=== PATIENT | female | born 1995 | race Caucasian/White ===

== ENCOUNTER 2016-05-07 03:30 | Emergency (ER) | payer OTHER ==
[2016-05-07] MEDS ORDERED: IOPAMIDOL 300 (61%) 100 ML VIAL IV ONE (03:31)
[2016-05-07 03:51] LABS: URINE APPEARANCE SL CLOUDY; URINE BILIRUBIN NEGATIVE (NEGATIVE); URINE BLOOD 1+ (NEGATIVE); URINE COLOR YELLOW; URINE GLUCOSE (UA) NEGATIVE (NEGATIVE); URINE LEUKOCYTE ESTERASE TRACE (NEGATIVE); URINE NITRITE NEGATIVE (NEGATIVE); URINE PROTEIN NEGATIVE (NEGATIVE); URINE UROBILINOGEN NORMAL (0-1 mg/dl)
[2016-05-07 03:53] LABS: HCG,QUALITATIVE URINE NEGATIVE
[2016-05-07 03:57] LABS: URINE BACTERIA TRACE; URINE MUCUS 3+
[2016-05-07 04:20] LABS: ABSOLUTE NEUTROPHIL COUNT 2.7 K/mm3 (1.8-7.7); BASO # 0.1 K/mm3 (0.0-0.2); EOS # 0.1 (0.0-0.5); EOS % 2.1 % (0.9-2.9); HEMOGLOBIN 13.5 gm/l (12.0-16.0); IMM NEUT% 0.2 % (0-1); LYMPH # 2.5 (1.0-4.8); LYMPH % 44.3 % (15-45); MEAN CELL VOLUME 88.3 fl (81.0-99.0); MEAN CORPUSCULAR HEMOGLOBIN 29.8 pg (27.0-31.0); MEAN CORPUSCULAR HGB CONC 33.8 g/dl (33.0-37.0); MEAN PLATELET VOLUME 10.1 fl (7.4-10.4); MONO # 0.3 (0.0-0.8); MONO % 5.9 % (4-12); NEUT % 46.5 % (43-75); PLATELET COUNT 221 K/mm3 (130-400); RED CELL DISTRIBUTION WIDTH 11.1 % (11.5-14.5)
[2016-05-07 05:00] LABS: CALCIUM 9.5 mg/dL (8.6-10.3)
[2016-05-07 05:51] LABS: ALB/GLOB RATIO 1.6 (>1.0); ALBUMIN 4.5 gm/dL (3.5-5.7)
--- NOTE | 2016-05-07 09:23 | CT ---
ABD/PELVIS W/ CON COMPARISON: Pelvis ultrasound, 12/25/2015. CT abdomen and pelvis without contrast 10/19/2013 HISTORY: Abdominal bloating since 04/06/2016. Diarrhea and nausea. No vomiting. Headaches every day. Technique: Intravenous injection 100 mL Isovue 300. Using a [employer] Aquilion [address] scanner, images were obtained from the diaphragm to the floor the pelvis. An automated dose reduction technique was used to minimize patient radiation dose. Dose information: CTDIvol (mGy): 4.20 DLP(mGycm): 191.40 FINDINGS: Lung bases: Normal. Inferior mediastinum and heart: Normal. Liver: Normal. Gallbladder:Normal. Bile ducts: Normal. Pancreas: Normal. Spleen: Normal. Adrenal glands: Normal. Kidneys: No change. Bilateral nonobstructing calculi up to 3 mm on the right and up to 4 mm on the left. Ureters: Normal Urinary bladder: Normal. Uterus and adnexa: Normal. Blood vessels: Normal Lymph nodes: Normal Stomach: Normal Duodenum: Normal Small intestine: Normal Appendix: Normal Colon: Normal Abdominal wall and supporting musculature: Normal Bones: Normal IMPRESSION: Incidental finding of unchanged bilateral nonobstructing renal calculi up to 3 mm on the right and up to 4 mm on the left. Preliminary report by [facility] radiologist Johnny Byrnes M.D. 05/07/2016 at 08/12/2002
== END 2016-05-07 05:40 | disposition home or self-care (01) ==
LOC: ED 03:30
DX: R10.9 Unspecified abdominal pain (principal); R11.0 Nausea
CPT/HCPCS: 81025; 85025; 80053; 81001; 74177; 99284 ×2; Q9967